=== PATIENT | female | born 1980 | race Caucasian/White ===

== ENCOUNTER 2020-11-09 08:50 | Emergency (ER) | payer OTHER ==
[~2020-11-09 08:50] MED LIST: IBUPROFEN800 MG PO; NORCO 10-325 T1 EACH PO
[2020-11-09 09:36] LABS: RED BLOOD COUNT 4.77 M/UL (4.00-5.10); WHITE BLOOD COUNT 11.6 K/UL (4.5-11.0)
[2020-11-09 10:17] LABS: BUN/CREATININE RATIO 15 (0-10)
== END 2020-11-09 12:55 | disposition home or self-care (01) ==
LOC: ER1 08:50
PROVIDERS: Nurse Practitioner
DX: R07.89 Other chest pain (principal); E78.5 Hyperlipidemia, unspecified; I10 Essential (primary) hypertension; E03.9 Hypothyroidism, unspecified; Z90.49 Acquired absence of other specified parts of digestive tract; Z90.89 Acquired absence of other organs
CPT/HCPCS: 71045; 80053; 82550; 82553; 83735; 83874; 84484; 85025; 93005; 99285

== ENCOUNTER → 2021-02-25 | Outpatient (CLI) | payer OTHER | LOC: SLEEP 14:58 | DX: G47.33 Obstructive sleep apnea (adult) (pediatric) (principal) | CPT/HCPCS: 95810 ==

== ENCOUNTER 2022-01-20 15:40 | Emergency (ER) | payer OTHER ==
[2022-01-20] MEDS ORDERED: AUGMENTIN 500-1 EACH PO (17:36)
== END 2022-01-20 17:55 | disposition home or self-care (01) ==
LOC: ER1 15:40
DX: S01.151A Open bite of right eyelid and periocular area, initial encounter (principal); Z23 Encounter for immunization; W54.0XXA Bitten by dog, initial encounter
CPT/HCPCS: 90471; 90715; 99283